=== PATIENT | female | born 1985 | race Caucasian/White ===

== ENCOUNTER 2016-07-29 21:13 | Emergency (ER) | payer OTHER ==
[2016-07-29 21:43] LABS: URINE CULTURE NEEDED? NO; URINE MICRO REVIEW NEEDED? NO; URINE SOURCE CLEAN CATCH
[2016-07-29 21:45] LABS: BILIRUBIN URINE NEGATIVE (NEGATIVE); BLOOD URINE NEGATIVE (NEGATIVE); COLOR YELLOW; GLUCOSE URINE NEGATIVE (NEGATIVE); LEUKOCYTES URINE NEGATIVE (NEGATIVE); NITRITE URINE NEGATIVE (NEGATIVE); PH URINE 6.5; PROTEIN URINE TRACE mg/dL (NEGATIVE); SP GRAVITY URINE 1.027; TURBIDITY URINE CLEAR (CLEAR); UROBILINOGEN URINE 3 mg/dL (NORMAL)
[2016-07-29 21:46] LABS: UR EPITHELIAL CELLS <10 /HPF (<10); URINE BACTERIA NEGATIVE /HPF; URINE RBC <10 /HPF (<10); URINE WBC <10 /HPF (<10)
--- NOTE | 2016-07-29 22:08 | PROVIDER DOCUMENTATION ---
HPI-Female /OB/Breast - General Chief Complaint: UTI Symptoms Stated Complaint: UTI Time Seen by Provider: 07/29/16 22:03 Source: reports: patient Allergies/Adverse Reactions: Patient Allergies Allergy/AdvReac Type Severity Reaction Status Date / Time hydrocodone Allergy Intermediate ITCHING Verified 07/30/16 00:05 Home Medications: Home Medication List Medication Instructions Recorded Confirmed Last Taken Type Phenazopyridine HCl [Pyridium] 100 mg PO TID #6 tablet 07/29/16 Unknown Rx Sulfamethoxazole/Trimethoprim 1 each PO BID #10 tablet 07/29/16 Unknown Rx [Bactrim Ds Tablet] Buspirone [Buspar] 10 mg PO BID 07/30/16 07/30/16 07/29/16 19:00 History Duloxetine [Cymbalta] 20 mg PO DAILY 07/30/16 07/30/16 07/29/16 10:00 History Gabapentin [Neurontin] 300 mg PO TID 07/30/16 07/30/16 07/29/16 15:00 History Meloxicam 15 mg PO DAILY 07/30/16 07/30/16 07/29/16 10:00 History - History of Present Illness-Female /OB Nature of Presenting Problem: 31 y/o WF c/o dysuria x 1 day, back pain, suprapubic pain/pressure x 2 days. Denies any vaginal d/c, but states dysuria worse after sex. Denies any other sxs. Review of Systems - Adult - REVIEW OF SYSTEMS - ADULT Constitutional: reports: no symptoms reported. denies: chills, fever Eyes: reports: no symptoms reported. denies: blurred vision, double vision Ears, Nose, Mouth & Throat: reports: no symptoms reported. denies: ear pain, nose pain Cardiovascular: reports: no symptoms reported. denies: chest pain, palpitations Respiratory: reports: no symptoms reported. denies: dyspnea on exertion, shortness of breath Gastrointestinal: reports: no symptoms reported. denies: nausea, vomiting Genitourinary: reports: see HPI, dysuria. denies: discharge, frequency, flank pain, hematuria Musculoskeletal: reports: no symptoms reported. denies: joint pain, joint swelling Integumentary: reports: no symptoms reported. denies: nail changes, rash Neurological: reports: no symptoms reported. denies: numbness, paresthesia Psychiatric: reports: no symptoms reported Endocrine: reports: no symptoms reported. denies: cold intolerance, heat intolerance Hematologic/Lymphatic: reports: no symptoms reported. denies: easy bruising, prolonged bleeding Allergic/Immunologic: reports: no symptoms reported All Other Systems: Reviewed and Negative Past History - Adult - PAST MEDICAL HISTORY-ADULT Review of Records: reports: Nursing Assessment Review, Medications Reviewed Major Childhood Illnesses: reports: denies history, history unknown Cardiovascular: reports: denies history Respiratory: reports: denies history Gastrointestinal: reports: denies history Obstetrical/Gynecological: reports: other (c section/ D&C) Genitourinary: reports: denies history Musculoskeletal: reports: intervertebral disc disease, other (some occasional joint aches knees) Neurological: reports: denies history Psychiatric: reports: anxiety Endocrine/Immune: reports: denies history Other Conditions: reports: denies history - PRIOR SURGERIES/PROCEDURES Surgical/Procedure History: reports: , other - IMMUNIZATION STATUS Childhood Immunizations: See Nurse Assessment Flu Vaccine: See Nurse Assessment - FAMILY HISTORY Family History: reviewed, not pertinent - SOCIAL HISTORY Smoking: cigarettes, less than 1 pack/day Provider spent 3-5 mins advising pt. on dangers of tobacco.: Discussed manners to quit use, and f/u contacts for add'l counseling. Substance Use: marijuana Alcohol Use Frequency: never Physical Exam-General - PHYSICAL EXAM-ADULT Initial Vital Signs Reviewed: Yes - CONSTITUTIONAL General Appearance: alert, no apparent distress - EYES Eyes: pink conjunctivae - HEAD, EARS, NOSE, MOUTH & THROAT HENMT: normocephalic/atraumatic - MUSCULOSKELETAL Extremity: normal gait, normal capillary refill - SKIN Integumentary: normal color, normal turgor, warm/dry - NEUROLOGIC Neurologic: negative: aphasia - PSYCHIATRIC Psych/Mental Status: normal mood/affect, normal thought content, normal thought process, oriented x 3 Progress - PLAN OF CARE/RESULTS Progress/Plan/Lab Results: Laboratory Tests 07/29/16 21:28 Urine Source CLEAN CATCH Urine Color YELLOW Urine Turbidity CLEAR Urine pH 6.5 Ur Specific [place] 1.027 Urine Protein TRACE A Ur Glucose (Stick) NEGATIVE Ur Ketones (Stick) TRACE A Urine Blood NEGATIVE Urine Nitrite NEGATIVE Urine Bilirubin NEGATIVE Urobilinogen Dipstick 3 A Urine Leukocytes NEGATIVE Urine WBC (Auto) <10 Urine RBC (Auto) <10 U Epithel Cells (Auto) <10 Urine Bacteria (Auto) NEGATIVE Orders Category Date Time Status URINALYSIS W/POSS RFLX CULT [URINALYSIS] Stat Lab 07/29/16 21:28 Completed Sulfamethoxazole/Tmp D.s. [Septra Ds] Med 07/29/16 22:09 Discontinued 1 each PO NOW ONE Vital Signs Temp Pulse Resp BP Pulse Ox 07/30/16 00:14 54 L 18 127/81 100 07/29/16 21:28 98.7 F 69 16 126/55 98 hydrocodone Allergy (Intermediate, Verified 07/30/16 00:05) ITCHING Phenazopyridine HCl [Pyridium] 100 mg PO TID #6 tablet 07/29/16 Sulfamethoxazole/Trimethoprim [Bactrim Ds Tablet] 1 each PO BID #10 tablet 07/29 Buspirone [Buspar] 10 mg PO BID 07/30/16 Duloxetine [Cymbalta] 20 mg PO DAILY 07/30/16 Gabapentin [Neurontin] 300 mg PO TID 07/30/16 Meloxicam 15 mg PO DAILY 07/30/16 I&O 07/30/16 07/31/16 08/01/16 06:59 06:59 06:59 Output Total 60 Balance -60 Laboratory 07/29/16 21:28 Urine Source CLEAN CATCH Urine Color YELLOW Urine Turbidity CLEAR Urine pH 6.5 Ur Specific [place] 1.027 Urine Protein TRACE A Ur Glucose (Stick) NEGATIVE Ur Ketones (Stick) TRACE A Urine Blood NEGATIVE Urine Nitrite NEGATIVE Urine Bilirubin NEGATIVE Urobilinogen Dipstick 3 A Urine Leukocytes NEGATIVE Urine WBC (Auto) <10 Urine RBC (Auto) <10 U Epithel Cells (Auto) <10 Urine Bacteria (Auto) NEGATIVE Discussed results and f/u with pt, including importance of hydration with the pt. Departure - Departure Time of Disposition Order: 22:08 DIAGNOSIS: Mild dehydration UTI (urinary tract infection) Qualifiers: Urinary tract infection type: acute cystitis Hematuria presence: without hematuria Qualified Code(s): N30.00 - Acute cystitis without hematuria Disposition: HOME 01 Certified Medical Emergency: Emergent Condition: Stable Additional Instructions: Take medications as directed. Follow up with PCP if symptoms persist. Drink plenty of water. ED Follow Up Instructions: You have been treated by a care provider in the Emergency Department. These instructions are being provided to you so you can have an understanding of how to care for yourself upon discharge. Upon discharge from the Emergency Department, you are responsible for making arrangements for follow-up care by a physician of your choice. Take all prescribed medications as directed. Return to the Emergency Department immediately for any new or worsening symptoms. You may call the Physician Referral phone number at [phone] to obtain a list of Physicians who are taking new patients. Prescriptions: Sulfamethoxazole/Trimethoprim [Bactrim Ds Tablet] 1 each PO BID #10 tablet Phenazopyridine HCl [Pyridium] 100 mg PO TID #6 tablet Referrals: Marianela Rand CRNP [Primary Care Provider] - Instructions: Urinary Tract Infection, [id number], Dehydration, Adult, Easy- to-Read Attestation - Physician/ FABIAN Attestation Patient care was provided by Advanced Practice Provider:: Yes Advanced Practice Provider:: Abby Norris Advanced Practice Provider documentation review:: The Mid-level provider documentation, treatment plan and medical decision making was reviewed by the physician who agrees with all treatment and medical decision making by the MLP.
[2016-07-29] MEDS ORDERED: SEPTRA DS PO ONE (22:09)
[2016-07-30 00:15] VITALS: BP 127/81
== END 2016-07-30 00:14 | disposition home or self-care (01) ==
LOC: ED 21:13
DX: N30.00 Acute cystitis without hematuria (principal); E86.0 Dehydration; R30.0 Dysuria; M54.9 Dorsalgia, unspecified; R10.30 Lower abdominal pain, unspecified; F17.210 Nicotine dependence, cigarettes, uncomplicated; Z71.6 Tobacco abuse counseling; Z79.899 Other long term (current) drug therapy; Z79.1 Long term (current) use of non-steroidal anti-inflammatories (NSAID)
CPT/HCPCS: 81001; 99283